=== PATIENT | male | born 1950 | race Caucasian/White ===

== ENCOUNTER 2017-05-06 10:28 | Outpatient (CLI) | payer MEDICARE ==
[2017-05-06 11:16] LABS: #Basophils 0.1 thou/uL (0.0-0.2); #Eosinphils 0.5 thou/uL (0.0-0.7); #Lymphocytes 1.2 thou/uL (1.20-3.40); #Monocytes 0.7 thou/uL (0.11-0.59); #Neutrophils 5.5 thou/uL (1.40-6.50); %Basophils 1.2 % (0.0-1.0); %Eosinophils 6.1 % (0.0-10.0); %Lymphocytes 14.7 % (21.0-51.0); %Monocytes 8.8 % (0.0-10.0); %Neutrophils 69.2 % (42.0-75.0); Hemoglobin 14.2 g/dL (14.0-18.0); Mean Corpuscular HGB CONC 34.7 g/dL (32.0-36.0); Mean Corpuscular Hemoglobin 33.8 pg (27.0-31.0); Mean Corpuscular Volume 97.4 fl (80.0-94.0); Mean Platelet Volume 5.7 fL (7.4-10.4); Platelet Count 204 thou/uL (130-400); RBC Distribution Width 12.6 % (11.5-14.5); Red Blood Cell (RBC) Count 4.21 mill/uL (4.70-6.10); White Blood Cell (WBC) Count 7.9 thou/uL (4.8-10.8)
[2017-05-06 11:41] LABS: Hemoglobin A1c 5.8 % (4.0-6.0)
[2017-05-06 11:42] LABS: ALT (SGPT) 17 U/L (8-55); AST (SGOT) 16 U/L (5-34); Albumin 3.9 g/dL (3.4-4.8); Alkaline Phosphatase 64 U/L (40-150); Anion Gap 15 mmol/L (10-20); BUN (Urea Nitrogen) 23 mg/dL (8.4-25.7); Bilirubin, Total 0.5 mg/dL (0.2-1.2); Calc. Creatinine Clearance 0 mL/min (70-130); Calcium 9.3 mg/dL (7.8-10.44); Carbon Dioxide 29 mmol/L (23-31); Chloride 104 mmol/L (98-107); Cholesterol 137 mg/dl (< 200 Desired); Estimated GFR-MDRD Greater than 90; Globulin 2.5 g/dL (2.4-3.5); Glucose 110 mg/dL (80-115); HDL Cholesterol 34 mg/dL (>60 Neg Risk); LDL Cholesterol, Calculated 75 mg/dL; Potassium 4.5 mmol/L (3.5-5.1); Protein, Total 6.4 g/dL (5.8-8.1); Sodium 143 mmol/L (136-145); Triglycerides 139 mg/dL (Less than 150); Uric Acid 6.5 mg/dL (3.5-7.2)
[2017-05-06 11:58] LABS: PSA-Symptomatic (DIAGNOSTIC) Less than 0.02 ng/mL (0-4.0); Thyroid Stimulating Hormone 2.1004 uIU/mL (0.35-4.94)
== END 2017-05-06 10:29 | disposition home or self-care (01) ==
LOC: HPCALD 10:28
PROVIDERS: ATTEND Family Medicine
DX: E88.81 Metabolic syndrome and other insulin resistance (principal); E78.5 Hyperlipidemia, unspecified; C61 Malignant neoplasm of prostate; I10 Essential (primary) hypertension; M1A.9XX0 Chronic gout, unspecified, without tophus (tophi)
CPT/HCPCS: 36415; 80053; 80061; 83036; 84153; 84443; 84550; 85025

== ENCOUNTER 2017-05-12 16:31 | Outpatient (CLI) | payer MEDICARE ==
[2017-05-13 18:47] LABS: Folate (Folic Acid) 18.2 ng/mL (7.0-31.4)
== END 2017-05-12 16:32 | disposition home or self-care (01) ==
LOC: HPCALD 16:31
PROVIDERS: ATTEND Family Medicine
DX: D53.9 Nutritional anemia, unspecified (principal)
CPT/HCPCS: 36415; 82607; 82746

== ENCOUNTER 2017-06-18 12:02 | Outpatient (CLI) | payer MEDICARE ==
[2017-06-18 12:52] LABS: #Basophils 0.1 thou/uL (0.0-0.2); #Eosinphils 0.2 thou/uL (0.0-0.7); #Lymphocytes 1.8 thou/uL (1.20-3.40); #Monocytes 0.9 thou/uL (0.11-0.59); #Neutrophils 9.2 thou/uL (1.40-6.50); %Basophils 0.5 % (0.0-1.0); %Eosinophils 1.7 % (0.0-10.0); %Monocytes 7.2 % (0.0-10.0); %Neutrophils 75.7 % (42.0-75.0); Hemoglobin 15.6 g/dL (14.0-18.0); Mean Corpuscular HGB CONC 33.7 g/dL (32.0-36.0); Mean Corpuscular Hemoglobin 33.1 pg (27.0-31.0); Mean Corpuscular Volume 98.1 fl (80.0-94.0); Mean Platelet Volume 6.2 fL (7.4-10.4); Platelet Count 233 thou/uL (130-400); RBC Distribution Width 12.4 % (11.5-14.5); Red Blood Cell (RBC) Count 4.72 mill/uL (4.70-6.10); White Blood Cell (WBC) Count 12.1 thou/uL (4.8-10.8)
[2017-06-18 13:05] LABS: Bilirubin Negative (Negative); Blood, Urine Negative (Negative); Clarity Clear (Clear); Glucose, Urine (Dipstick) Negative (Negative); Leukocyte Negative (Negative); Nitrite Negative (Negative); Protein, Urine (Dipstick) Negative (Neg-Trace); Urobilinogen 0.2 mg/dL (0.2-1.0); pH, Urine 5.5 (5.0-9.0)
[2017-06-18 13:12] LABS: RBC/HPF 0-3 HPF (0-3); Squamous Epithelial 0-3 HPF (0-3); WBC/HPF 0-3 HPF (0-3)
[2017-06-18 13:13] LABS: Bacteria/HPF 1+ HPF (None Seen)
[2017-06-18 13:31] LABS: ALT (SGPT) 24 U/L (8-55); AST (SGOT) 14 U/L (5-34); Albumin 4.2 g/dL (3.4-4.8); Alkaline Phosphatase 64 U/L (40-150); Anion Gap 11 mmol/L (10-20); BUN (Urea Nitrogen) 23 mg/dL (8.4-25.7); Bilirubin, Total 1.1 mg/dL (0.2-1.2); Calc. Creatinine Clearance 0 mL/min (70-130); Carbon Dioxide 27 mmol/L (23-31); Chloride 101 mmol/L (98-107); Estimated GFR-MDRD 88; Globulin 2.8 g/dL (2.4-3.5); Glucose 118 mg/dL (80-115); Potassium 3.8 mmol/L (3.5-5.1); Sodium 135 mmol/L (136-145)
--- NOTE | 2017-06-18 19:44 | RAD ---
CHEST TWO VIEWS 06/18/17 No prior films were available for comparison. The heart is normal in size. The lungs are clear. No infiltrate or effusion was seen. The trachea is midline. There is no congestion of the vessels. Some thoracic scoliosis is suggested. IMPRESSION: No acute thoracic finding. POS: HOME
== END 2017-06-18 12:03 | disposition home or self-care (01) ==
LOC: BURRAD 12:02
PROVIDERS: ATTEND Family Medicine
DX: Z01.818 Encounter for other preprocedural examination (principal); N39.44 Nocturnal enuresis
CPT/HCPCS: 36415; 71020; 80053; 81001; 84443; 85025; 87086; 93005; 93010

== ENCOUNTER 2017-08-06 07:49 | Outpatient (CLI) | payer OTHER ==
--- NOTE | 2017-08-06 18:06 | CT ---
CT ABDOMEN AND PELVIS WITH CONTRAST 08/06/[address] of the abdomen and pelvis was performed for evaluation of right upper quadrant pain. Axial slices were acquired after giving oral and IV contrast. Coronal reconstructions were then done. The lung bases are clear. There are no effusions. The liver, spleen, pancreas, gallbladder, adrenal glands, and kidneys all were normal in appearance. No stones were appreciated in the gallbladder. Of note is the abdominal aorta. While it has a small to medium amount of calcification in it, there is a 5 cm distal abdominal aortic aneurysm present that is just above the bifurcation and ends by the time the iliac arteries take off. It is about 5 cm in maximal transverse diameter and about 5 cm fro m top to bottom. The bowel shows no sign of obstruction. There is no bowel wall thickening. Some of the folds in the pyloric region of the stomach may be slightly increased, such as might be seen in peptic disease. Ne vertheless, this is an equivocal finding at best as the stomach is not very distended. I see no othe r potential causes for right upper quadrant pain. No free air or free fluid was seen. The patient do es have a fat filled umbilical hernia in the anterior abdominal wall that measures about [address] of the pelvis shows no pelvic masses, fluid collections or other acute pathology. Sutures are see n in the region from prior surgery. There is some mild concentric thickening of the urinary bladder wall such as might be seen with mild bladder outlet obstruction. There are very extensive degenerative changes in the lumbar spine which get worse as one goes inferi norma. A central canal stenosis is suggested at at least the two lower lumbosacral levels. IMPRESSION: 1. 5 cm distal abdominal aortic aneurysm just above the bifurcation. 2. Possible slight thickening of the folds in the pyloric region of the stomach, but this is an equivocal finding at best. 3. 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 4. 5 cm fat filled umbilical hernia. No bowel whatsoever in this structure. Findings discussed with Dr. Guajardo at 1555 on 08/06/17. POS: HOME
== END 2017-08-06 07:50 | disposition home or self-care (01) ==
LOC: BURCT 07:49
PROVIDERS: ATTEND Family Medicine
DX: R10.11 Right upper quadrant pain (principal); B02.29 Other postherpetic nervous system involvement; I71.4 Abdominal aortic aneurysm, without rupture; K42.9 Umbilical hernia without obstruction or gangrene; M47.896 Other spondylosis, lumbar region; M48.061 Spinal stenosis, lumbar region without neurogenic claudication
CPT/HCPCS: 74177

== ENCOUNTER 2018-07-12 12:08 | Outpatient (CLI) | payer OTHER ==
[2018-07-12 18:18] LABS: #Basophils 0.1 thou/uL (0.0-0.2); #Eosinphils 0.4 thou/uL (0.0-0.7); #Lymphocytes 1.8 thou/uL (1.20-3.40); #Monocytes 0.9 thou/uL (0.11-0.59); %Basophils 0.9 % (0.0-1.0); %Eosinophils 5.3 % (0.0-10.0); %Monocytes 11.1 % (0.0-10.0); %Neutrophils 60.8 % (42.0-75.0); Hemoglobin 14.3 g/dL (14.0-18.0); Mean Corpuscular Hemoglobin 33.4 pg (27.0-31.0); Mean Platelet Volume 8.6 fL (7.4-10.4); Platelet Count 221 thou/uL (130-400); RBC Distribution Width 13.1 % (11.5-14.5); Red Blood Cell (RBC) Count 4.29 mill/uL (4.70-6.10); White Blood Cell (WBC) Count 8.2 thou/uL (4.8-10.8)
[2018-07-12 18:47] LABS: ALT (SGPT) 14 U/L (8-55); AST (SGOT) 24 U/L (5-34); Albumin 4.1 g/dL (3.4-4.8); Alkaline Phosphatase 79 U/L (40-150); Anion Gap 14 mmol/L (10-20); BUN (Urea Nitrogen) 16 mg/dL (8.4-25.7); Bilirubin, Total 0.7 mg/dL (0.2-1.2); Calc. Creatinine Clearance 0 mL/min (70-130); Calcium 9.7 mg/dL (7.8-10.44); Carbon Dioxide 27 mmol/L (23-31); Chloride 105 mmol/L (98-107); Estimated GFR-MDRD 82; Glucose 104 mg/dL (80-115); Potassium 4.8 mmol/L (3.5-5.1); Protein, Total 7.1 g/dL (5.8-8.1); Sodium 141 mmol/L (136-145)
--- NOTE | 2018-07-12 21:38 | RAD ---
CHEST TWO VIEWS: 07/12/18 Comparison is made with an 08/26/17 study from [facility]. The heart size is stable. Median sternotomy sutures heather prior surgery. There is no vascular congest ion, edema, or pleural effusion. No pulmonary masses are seen. The trachea is midline. IMPRESSION: No acute thoracic finding. POS: HOME
== END 2018-07-12 12:09 | disposition home or self-care (01) ==
LOC: BURLAB 12:08 → BURRAD 12:09
PROVIDERS: ATTEND Family Medicine
DX: Z01.818 Encounter for other preprocedural examination (principal)
CPT/HCPCS: 36415; 71046; 80053; 85025

== ENCOUNTER 2022-01-27 14:26 | Outpatient (CLI) | payer OTHER ==
[2022-01-27 15:02] LABS: ALT (SGPT) 19 U/L (8-55); AST (SGOT) 19 U/L (5-34); Albumin 4.1 g/dL (3.4-4.8); Alkaline Phosphatase 55 U/L (40-110); Anion Gap 15 mmol/L (10-20); BUN (Urea Nitrogen) 15 mg/dL (8.4-25.7); Bilirubin, Direct 0.4 mg/dL (0.1-0.3); Bilirubin, Total 0.8 mg/dL (0.2-1.2); Calc. Creatinine Clearance 0 mL/min (70-130); Calcium 9.4 mg/dL (7.8-10.44); Carbon Dioxide 29 mmol/L (23-31); Chloride 101 mmol/L (98-107); Cholesterol 119 mg/dl (< 200 Desired); Glucose 134 mg/dL (83-110); HDL Cholesterol 40 mg/dL (>60 Neg Risk); LDL Cholesterol, Calculated 43 mg/dL; Protein, Total 7.3 g/dL (5.8-8.1); Sodium 140 mmol/L (136-145); Triglycerides 179 mg/dL (Less than 150)
== END 2022-01-27 14:27 | disposition home or self-care (01) ==
LOC: BURLAB 14:26
PROVIDERS: ATTEND Internal Medicine Cardiovascular Disease
DX: E78.2 Mixed hyperlipidemia (principal); Z95.1 Presence of aortocoronary bypass graft
CPT/HCPCS: 36415; 80048; 80061; 80076